=== PATIENT | male | born 1965 | race Caucasian/White ===

== ENCOUNTER 2021-01-09 06:50 | Inpatient (IN) ==
[2021-01-09] MEDS ORDERED: Bacitracin OINTMENT TUBE TOPICAL ONE (07:48)
[2021-01-09 07:54] LABS: ABS Basophils 0.1 10^3/ul (0-0.2); ABS Lymphocytes 2.1 10^3/ul (1.0-4.8); ABS Monocytes 0.6 10^3/ul (0-0.8); ABS Neutrophils 4.7 10^3/ul (1.5-7.7); Eosinophil % 0.5 %; Hematocrit 46 % (42-52); Hemoglobin 15.6 g/dL (14.0-18.0); Lymphocyte % 27.7 %; Mean Corpuscular HGB Conc 34 g/dL (31-36); Mean Corpuscular Hemoglobin 31 pg (27-31); Mean Corpuscular Volume 92 fL (80-94); Mean Platelet Volume 9.6 fL (7.4-10.4); Nucleated Red Blood Cells % 0.1; Platelet Count 161 10^3/uL (150-450); Red Blood Count 4.97 10^6 /uL (4.18-5.48); Red Cell Distribution Width 15 % (10-15); White Blood Count 7.5 10^3/uL (3.5-10.8)
[2021-01-09 08:07] LABS: Albumin 4.2 g/dL (3.2-5.2); Albumin/Globulin Ratio 1.4 (1-3); Calcium 8.9 mg/dL (8.6-10.3); Globulin 2.9 g/dL (2-4); Magnesium 1.8 mg/dL (1.9-2.7); Potassium 3.4 mmol/L (3.5-5.0); Total Bilirubin 1.8 mg/dL (0.2-1.0); Total Protein 7.1 g/dL (6.4-8.9)
[2021-01-09 08:09] LABS: Troponin I 0.01 ng/mL (<0.03)
[2021-01-09 08:11] LABS: Rapid COVID-19 Molecular Undetected (Undetected)
[2021-01-09] MEDS ORDERED: Iohexol 350 (CONTRAST) 500 ML MDV IV ONE (08:18)
[2021-01-09 09:39] LABS: Urine Appearance Clear; Urine Bilirubin Negative (Negative); Urine Blood Negative (Negative); Urine Color Yellow; Urine Glucose Negative (Negative); Urine Ketones Negative (Negative); Urine Nitrite Negative (Negative); Urine Protein 2+(100 mg/dL) (Negative); Urine Specific Gravity 1.029 (1.002-1.030); Urine Urobilinogen Positive (Negative)
[2021-01-09 10:08] LABS: Urine Bacteria Absent (Absent); Urine Red Blood Cell 1+(3-5/hpf) (Absent); Urine Sperm Present (Absent); Urine White Blood Cell Trace(0-5/hpf) (Absent)
[2021-01-09] MEDS ORDERED: Potassium Chlor 20 meq TAB.ER PO ONE (11:00)
[2021-01-09] MEDS ORDERED: Magnesium Sulfate 2 gm BAG 2 GM/50 ML BAG IVPB ONE (11:00)
[2021-01-09] MEDS ORDERED: Heparin 5000 UNITS/ML 1 mL VIAL IV SCH (13:00)
[2021-01-09] MEDS ORDERED: Perflutren Lipid Microsphere 3 ML VIAL ONE (14:28)
[2021-01-09] MEDS ORDERED: Heparin DRIP 25,000 UNITS BAG 25,000 UNITS/500 ML BAG IV SCH (21:00)
[2021-01-09] MEDS: Triamcinolone 0.5% OINT 1 TUBE TOPICAL SCH (21:30)
[2021-01-10 06:56] LABS: ABS Lymphocytes 2.2 10^3/ul (1.0-4.8); ABS Monocytes 0.9 10^3/ul (0-0.8); ABS Neutrophils 4.9 10^3/ul (1.5-7.7); Eosinophil % 0.4 %; Hematocrit 46 % (42-52); Hemoglobin 15.5 g/dL (14.0-18.0); Lymphocyte % 27.7 %; Mean Corpuscular HGB Conc 34 g/dL (31-36); Mean Corpuscular Hemoglobin 31 pg (27-31); Mean Corpuscular Volume 92 fL (80-94); Mean Platelet Volume 9.8 fL (7.4-10.4); Platelet Count 161 10^3/uL (150-450); Red Blood Count 4.96 10^6 /uL (4.18-5.48); Red Cell Distribution Width 15 % (10-15); White Blood Count 8.1 10^3/uL (3.5-10.8)
[2021-01-10 07:13] LABS: Calcium 9.5 mg/dL (8.6-10.3); Potassium 3.7 mmol/L (3.5-5.0)
[2021-01-10] MEDS ORDERED: Naloxone 0.4 mg VIAL 0.4 mg/ml 1 ml VIAL ONE (07:46)
[2021-01-10] MEDS ORDERED: fentaNYL 100 mcg/2 ml 50 MCG/ML VIAL ONE (07:46)
[2021-01-10] MEDS ORDERED: Flumazenil 0.5 mg/5 ml 0.1 MG/ML 5 ml VIAL ONE (07:46)
[2021-01-10] MEDS ORDERED: Midazolam 5 mg/5 ml VIAL 1 mg/ml 5 ml VIAL (5 mg) ONE (07:46)
[2021-01-10] MEDS: Aspirin EC 81 mg TAB.EC (enteric coated) PO SCH ×2 (11:12→13:38)
[2021-01-10] MEDS: Fluticasone NASAL SPRAY 50MCG 16 gm SPRAY BTL INTRANASAL SCH ×2 (11:13→13:39)
[2021-01-10] MEDS: Triamcinolone 0.5% OINT 1 TUBE TOPICAL SCH ×3 (11:14→20:52)
[2021-01-10] MEDS ORDERED: Potassium Chloride LIQUID 20 MEQ/15 ML LIQUID PO ONE (14:43)
[2021-01-10 16:18] LABS: Potassium 3.5 mmol/L (3.5-5.0)
[2021-01-11] MEDS ORDERED: Potassium Chloride LIQUID 20 MEQ/15 ML LIQUID PO ONE (07:24)
[2021-01-11] MEDS: Aspirin EC 81 mg TAB.EC (enteric coated) PO SCH (10:27)
[2021-01-11] MEDS: Fluticasone NASAL SPRAY 50MCG 16 gm SPRAY BTL INTRANASAL SCH (10:29)
[2021-01-11] MEDS: Triamcinolone 0.5% OINT 1 TUBE TOPICAL SCH ×2 (10:29→21:54)
[2021-01-11 13:07] LABS: ABS Basophils 0.1 10^3/ul (0-0.2); ABS Lymphocytes 2.2 10^3/ul (1.0-4.8); ABS Monocytes 0.9 10^3/ul (0-0.8); ABS Neutrophils 4.6 10^3/ul (1.5-7.7); Eosinophil % 0.2 %; Hematocrit 47 % (42-52); Hemoglobin 15.7 g/dL (14.0-18.0); Lymphocyte % 28.2 %; Mean Corpuscular HGB Conc 34 g/dL (31-36); Mean Corpuscular Hemoglobin 31 pg (27-31); Mean Corpuscular Volume 93 fL (80-94); Mean Platelet Volume 9.8 fL (7.4-10.4); Nucleated Red Blood Cells % 0.1; Platelet Count 155 10^3/uL (150-450); Red Blood Count 5.05 10^6 /uL (4.18-5.48); Red Cell Distribution Width 15 % (10-15); White Blood Count 7.7 10^3/uL (3.5-10.8)
[2021-01-11] MEDS ORDERED: Furosemide 20 mg/2 ml IV VIAL IV ONE (15:11)
[2021-01-11] MEDS: Amiodarone 400 mg TAB PO SCH (21:38)
[2021-01-12 05:55] LABS: ABS Basophils 0.1 10^3/ul (0-0.2); ABS Lymphocytes 1.9 10^3/ul (1.0-4.8); ABS Monocytes 0.8 10^3/ul (0-0.8); ABS Neutrophils 3.7 10^3/ul (1.5-7.7); Eosinophil % 0.6 %; Hematocrit 43 % (42-52); Hemoglobin 14.4 g/dL (14.0-18.0); Lymphocyte % 28.5 %; Mean Corpuscular HGB Conc 34 g/dL (31-36); Mean Corpuscular Hemoglobin 31 pg (27-31); Mean Corpuscular Volume 92 fL (80-94); Mean Platelet Volume 9.7 fL (7.4-10.4); Platelet Count 133 10^3/uL (150-450); Red Blood Count 4.64 10^6 /uL (4.18-5.48); Red Cell Distribution Width 15 % (10-15); White Blood Count 6.5 10^3/uL (3.5-10.8)
[2021-01-12 06:13] LABS: Calcium 9.4 mg/dL (8.6-10.3); Magnesium 1.8 mg/dL (1.9-2.7); Potassium 4.1 mmol/L (3.5-5.0)
[2021-01-12] MEDS: Potassium Chloride LIQUID 20 MEQ/15 ML LIQUID PO SCH (08:35)
[2021-01-12] MEDS: Aspirin EC 81 mg TAB.EC (enteric coated) PO SCH (08:36)
[2021-01-12] MEDS: Amiodarone 400 mg TAB PO SCH ×2 (08:36→19:37)
[2021-01-12] MEDS: Triamcinolone 0.5% OINT 1 TUBE TOPICAL SCH ×2 (08:37→19:34)
[2021-01-12] MEDS: Fluticasone NASAL SPRAY 50MCG 16 gm SPRAY BTL INTRANASAL SCH (08:41)
[2021-01-12] MEDS ORDERED: Magnesium Sulfate 2 gm BAG 2 GM/50 ML BAG IVPB ONE (08:52)
[2021-01-12] MEDS ORDERED: Furosemide 20 mg/2 ml IV VIAL IV ONE (09:00)
[2021-01-13 06:07] LABS: ABS Lymphocytes 2.2 10^3/ul (1.0-4.8); ABS Monocytes 0.9 10^3/ul (0-0.8); ABS Neutrophils 3.9 10^3/ul (1.5-7.7); Eosinophil % 0.5 %; Hematocrit 44 % (42-52); Hemoglobin 14.9 g/dL (14.0-18.0); Lymphocyte % 31.3 %; Mean Corpuscular HGB Conc 34 g/dL (31-36); Mean Corpuscular Hemoglobin 31 pg (27-31); Mean Corpuscular Volume 92 fL (80-94); Nucleated Red Blood Cells % 0.2; Platelet Count 145 10^3/uL (150-450); Red Blood Count 4.82 10^6 /uL (4.18-5.48); Red Cell Distribution Width 15 % (10-15); White Blood Count 7.2 10^3/uL (3.5-10.8)
[2021-01-13 06:16] LABS: Calcium 9.2 mg/dL (8.6-10.3)
[2021-01-13] MEDS: Potassium Chloride LIQUID 20 MEQ/15 ML LIQUID PO SCH (08:04)
[2021-01-13] MEDS: Aspirin EC 81 mg TAB.EC (enteric coated) PO SCH (08:05)
[2021-01-13] MEDS: Amiodarone 400 mg TAB PO SCH (08:05)
[2021-01-13] MEDS: Triamcinolone 0.5% OINT 1 TUBE TOPICAL SCH ×2 (08:08→19:46)
[2021-01-13] MEDS: Fluticasone NASAL SPRAY 50MCG 16 gm SPRAY BTL INTRANASAL SCH (08:08)
[2021-01-13] MEDS ORDERED: Furosemide 20 mg/2 ml IV VIAL IV ONE (11:01)
[2021-01-14 06:59] LABS: ABS Lymphocytes 2.3 10^3/ul (1.0-4.8); ABS Monocytes 0.8 10^3/ul (0-0.8); ABS Neutrophils 4.2 10^3/ul (1.5-7.7); Eosinophil % 0.5 %; Hematocrit 45 % (42-52); Hemoglobin 15.3 g/dL (14.0-18.0); Lymphocyte % 31.6 %; Mean Corpuscular HGB Conc 34 g/dL (31-36); Mean Corpuscular Hemoglobin 31 pg (27-31); Mean Corpuscular Volume 92 fL (80-94); Mean Platelet Volume 9.8 fL (7.4-10.4); Platelet Count 156 10^3/uL (150-450); Red Blood Count 4.92 10^6 /uL (4.18-5.48); Red Cell Distribution Width 15 % (10-15); White Blood Count 7.4 10^3/uL (3.5-10.8)
[2021-01-14] MEDS ORDERED: NS 0.9% 1000 ml BAG 1,000 ML IV SCH ×2 (07:00→10:30)
[2021-01-14 07:20] LABS: Calcium 9.5 mg/dL (8.6-10.3); Potassium 4.3 mmol/L (3.5-5.0)
[2021-01-14] MEDS: Aspirin EC 81 mg TAB.EC (enteric coated) PO SCH (07:37)
[2021-01-14] MEDS: Fluticasone NASAL SPRAY 50MCG 16 gm SPRAY BTL INTRANASAL SCH (07:38)
[2021-01-14] MEDS: Triamcinolone 0.5% OINT 1 TUBE TOPICAL SCH (07:39)
[2021-01-14] MEDS ORDERED: Heparin 1,000 UNIT/ML 10 ml (10,000 UNITS) CATHLAB/DIALYSIS ONE (08:02)
[2021-01-14] MEDS ORDERED: Heparin 2 UNITS/ML 1000 mls 3,000 ML IV ONE (08:02)
[2021-01-14] MEDS ORDERED: Lidocaine 1% VIAL 10 MG/ML VIAL ONE (08:02)
[2021-01-14] MEDS ORDERED: Iohexol 350 (CONTRAST) 200 ML MDV IV ONE (08:02)
[2021-01-14] MEDS ORDERED: fentaNYL 100 mcg/2 ml 50 MCG/ML VIAL ONE (08:02)
[2021-01-14] MEDS ORDERED: Midazolam 5 mg/5 ml VIAL 1 mg/ml 5 ml VIAL (5 mg) ONE (08:02)
[2021-01-14] MEDS ORDERED: nitroGLYCERIN DRIP 25,000 MCG/250 ML BTL ONE (08:02)
[2021-01-14] MEDS ORDERED: niCARdipine 0.1MG/ML IVPREMIX 0 MG/0 ML BAG IV ONE (08:03)
[2021-01-14] MEDS ORDERED: VERAPAMIL 2.5 MG/ML 2 ML VIAL ** 5 mg/2 ml ONE (08:06)
[2021-01-14] MEDS ORDERED: Potassium Chloride LIQUID 20 MEQ/15 ML LIQUID PO SCH (09:00)
[2021-01-14] MEDS ORDERED: Amiodarone 400 mg TAB PO SCH (09:00)
[2021-01-14] MEDS ORDERED: Heparin 2 UNITS/ML 1000 mls 1,000 ML IV ONE (09:42)
[2021-01-14 17:26] VITALS: BP 102/65
== END 2021-01-14 17:13 | disposition home or self-care (01) | DRG 192 ==
LOC: ED 06:50 → EDHOLD 06:50 → SUATTDRO 11:36 → MEDTELE 13:27 → SUATTDRO 01-11 13:04
PROVIDERS: ADMIT Internal Medicine; ATTEND Internal Medicine

== ENCOUNTER 2022-10-14 12:45 | Inpatient (IN) ==
[2022-10-28] MEDS ORDERED: Buffered Lidocaine 1% SYRIN 1 ml INTRADERM ONE (06:00)
[2022-10-28] MEDS ORDERED: NS 0.9% 1000 ml BAG 1,000 ML IV SCH (06:00)
[2022-10-28] MEDS ORDERED: fentaNYL 100 mcg/2 ml 50 MCG/ML VIAL IV PRN (07:57)
[2022-10-28] MEDS ORDERED: Prochlorperazine 5 mg/ml 2 ml VIAL (10 mg) IV PRN (07:57)
[2022-10-28] MEDS ORDERED: Naloxone 0.4 mg VIAL 0.4 mg/ml 1 ml VIAL IV PRN (07:57)
[2022-10-28] MEDS ORDERED: HYDROmorphone 1 MG/1 ML SYRINGE IV PRN (07:57)
[2022-10-28] MEDS ORDERED: Propofol 10 MG/ML 20 ML BTL ONE ×2 (10:28→13:06)
[2022-10-28] MEDS ORDERED: fentaNYL 250 mcg/5 ml 50 MCG/ML 5 ml VIAL (250 MCG) ONE (10:30)
[2022-10-28] MEDS ORDERED: Heparin 5000 UNITS/ML 1 mL VIAL ONE (10:30)
[2022-10-28] MEDS ORDERED: Scopolamine 1 mg/72hr PATCH ONE (10:30)
[2022-10-28] MEDS ORDERED: ceFAZolin *3* GM in NS PREMIX 3 GM/100 ML BAG IV ONE (10:30)
[2022-10-28] MEDS ORDERED: Lidocaine 2% PF 5 ML VIAL ONE (10:32)
[2022-10-28] MEDS ORDERED: Rocuronium 50 mg VIAL 10 mg/ml 5 ml VIAL (50 mg) ONE ×3 (10:33→14:42)
[2022-10-28 10:55] LABS: Rapid COVID-19 Molecular Undetected (Undetected)
[2022-10-28] MEDS ORDERED: Methylene Blue 0.5 % 50 MG/10 ML AMP IV ONE (12:30)
[2022-10-28] MEDS ORDERED: Midazolam 2 mg/2 ml VIAL 1 mg/ml 2 ml VIAL (2 mg) ONE (12:50)
[2022-10-28] MEDS ORDERED: Phenylephrine IV 10 MG/ML 1 ml VIAL ONE (13:07)
[2022-10-28] MEDS ORDERED: Phenylephrine 40 mcg/mL 10mL (400mcg) SYRINGE ONE (13:13)
[2022-10-28] MEDS ORDERED: Ondansetron 4 mg VIAL 2 MG/ML 2 ml VIAL ONE ×3 (14:16→16:53)
[2022-10-28] MEDS ORDERED: Dexamethasone IV 4 MG/ML VIAL 1 ml VIAL ONE (14:16)
[2022-10-28] MEDS ORDERED: Acetaminophen IV 1 GM/100ML 1,000 MG/100 ML BAG IV ONE (14:41)
[2022-10-28] MEDS ORDERED: Esmolol 10 MG/ML 10 ML (100 mg) IV ONE (16:16)
[2022-10-28] MEDS ORDERED: HYDROmorphone 1 MG/1 ML SYRINGE IV SLOW PU PRN (16:23)
[2022-10-28] MEDS ORDERED: Fluticasone NASAL SPRAY 50MCG 16 gm SPRAY BTL INTRANASAL PRN (16:28)
[2022-10-28] MEDS ORDERED: Furosemide 20 mg/2 ml IV VIAL ONE (16:40)
[2022-10-28] MEDS: Ondansetron 4 mg VIAL 2 MG/ML 2 ml VIAL IV PRN ×2 (16:45→16:53)
[2022-10-28] MEDS ORDERED: Furosemide 20 mg/2 ml IV VIAL IV ONE (16:46)
[2022-10-28] MEDS ORDERED: Ondansetron 4 mg VIAL 2 MG/ML 2 ml VIAL IV ONE (16:54)
[2022-10-28] MEDS ORDERED: Prochlorperazine 5 mg/ml 2 ml VIAL (10 mg) ONE (16:57)
[2022-10-28] MEDS: Lactated Ringers 1000 ml BAG 1,000 ML IV SCH (18:18)
[2022-10-28] MEDS ORDERED: Famotidine IV 10 MG/ML 2 ml VIAL (20 mg) IV SLOW PU SCH (21:00)
[2022-10-28] MEDS: Acetaminophen IV 1 GM/100ML 1,000 MG/100 ML BAG IV SCH (22:30)
[2022-10-28] MEDS: HYDROmorphone 0.5 MG/0.5 ML SYRINGE IV SLOW PU PRN (22:37)
[2022-10-28] MEDS: Heparin 5000 UNITS/ML 1 mL VIAL SUBCUT SCH (22:37)
[2022-10-29] MEDS: Acetaminophen IV 1 GM/100ML 1,000 MG/100 ML BAG IV SCH ×3 (00:30→13:01)
[2022-10-29] MEDS: Lactated Ringers 1000 ml BAG 1,000 ML IV SCH ×2 (01:10→09:21)
[2022-10-29] MEDS: HYDROmorphone 0.5 MG/0.5 ML SYRINGE IV SLOW PU PRN (05:55)
[2022-10-29] MEDS: Heparin 5000 UNITS/ML 1 mL VIAL SUBCUT SCH ×2 (05:59→15:40)
[2022-10-29] MEDS ORDERED: CMCS:Epleronone 25 mg TAB (NF) PO SCH (09:00)
[2022-10-29] MEDS ORDERED: Pantoprazole VIAL 40 MG VIAL IV SCH (09:00)
[2022-10-29 14:28] VITALS: BP 92/64
[2022-10-29] MEDS ORDERED: D5W 1/2 NS KCl 20 meq 1000 ml 1,000 ML IV SCH (17:00)
== END 2022-10-29 16:30 | disposition home or self-care (01) | DRG 403 ==
LOC: AA 10-28 10:04 → SSU 10-28 18:18
PROVIDERS: ADMIT Surgery; ATTEND Surgery